=== PATIENT | male | born 1965 | race Caucasian/White ===

== ENCOUNTER → 2019-04-27 18:07 | Outpatient (CLI) | payer OTHER, SELFPAY ==
--- NOTE | 2019-04-27 | DI.RAD.S_ITS ---
PROCEDURE: XR ABDOMEN 1V INDICATIONS: Calculus of kidney TECHNIQUE: One view of the abdomen acquired. COMPARISON: [facility], CT, KIDNEY/ URETER/BLADDER, 01/03/2015, 11:26. FINDINGS: Surgical changes and devices: None. Bowel: Bowel gas pattern is normal. Soft tissues: Nonobstructing kidney stones are seen, with the largest on the left than 5 mm in the largest on the right measuring 3 mm. Bones: No suspicious bony lesions. Age-appropriate bony degenerative changes are seen. IMPRESSION: Bilateral nonobstructing kidney stones are seen by plain film. Dictated by: Jr Chris M.D. on 04/27/2019 at 19:36 Approved by: Jr Chris M.D. on 04/27/2019 at 19:36
== END ==
PROVIDERS: Family Provider Family Medicine; PCP Family Medicine; Referring Provider Urology; Visit Provider Urology
DX: N20.0 Calculus of kidney (principal)
CPT/HCPCS: 74018

== ENCOUNTER → 2021-06-08 11:54 | Outpatient (CLI) | payer OTHER, SELFPAY ==
--- NOTE | 2021-06-08 | DI.MRI.S_ITS ---
PROCEDURE: MR SHOULDER RT WO CON INDICATIONS: Impingement syndrome of right shoulder TECHNIQUE: Noncontrast oblique coronal T2 fast spin echo with fat saturation, oblique sagittal T1 spin echo and T2 fast spin echo with fat saturation, axial T1 spin echo and T2 fast spin echo with fat saturation through the shoulder. COMPARISON: None. FINDINGS: Image quality: Excellent. Rotator cuff: Tendinosis and low-grade articular and bursal surface partial thickness tear involving distal supraspinatus at its insertion on the humeral head is seen with suggestion of focal full-thickness perforation involving most anterior fibers of distal supraspinatus at its insertion on the humeral head without significant retraction of torn tendon fibers. Distal infraspinatus and subscapularis tendinosis is seen. Sagittal images demonstrate mild supraspinatus muscle atrophy. Bones and bursae: No bone marrow contusions or fractures. Moderate acromioclavicular joint osteoarthritic changes are seen with downward osteophyte formation depressing the musculotendinous junction of supraspinatus. Moderate glenohumeral joint osteoarthritic changes also noted. There is small to moderate amount of subacromial subdeltoid bursal fluid. Capsule and soft tissues: There is signal abnormality and contour irregularity involving superior anterior labrum at 12 to 1 o'clock position. Similar signal abnormality involving anterior inferior labrum at 4 to 5 o'clock position is also seen. The long head of the biceps tendon demonstrates normal location and morphology. The rotator interval appears normal, without fibrosis. The coracohumeral ligament is normal in thickness. IMPRESSION: 1. Tendinosis and low-grade articular and bursal surface partial thickness tear involving distal supraspinatus extending to musculotendinous junction. Possible subtle focal full-thickness perforation involving most anterior fibers of distal supraspinatus at its insertion on the humeral head. Distal infraspinatus and subscapularis tendinosis. Mild supraspinatus muscle atrophy. 2. Moderate acromioclavicular joint and glenohumeral joint osteoarthritis. No fracture or dislocation. Small to moderate amount of subacromial subdeltoid bursal fluid. 3. Suggestion of superior anterior labral tear at 12 to 1 o'clock position and anterior-inferior labral tear at 4 to 5 o'clock position. Dictated by: Adalberto Campuzano M.D. on 06/08/2021 at 13:00 Approved by: Adalberto Campuzano M.D. on 06/08/2021 at 14:25
== END ==
PROVIDERS: Family Provider Family Medicine; PCP Student in an Organized Health Care Education/Training Program; Referring Provider Orthopaedic Surgery; Visit Provider Orthopaedic Surgery
DX: M75.41 Impingement syndrome of right shoulder (principal); M75.111 Incomplete rotator cuff tear or rupture of right shoulder, not specified as traumatic; M19.011 Primary osteoarthritis, right shoulder
CPT/HCPCS: 73221

== ENCOUNTER 2023-02-15 01:53 | Emergency (ER) | payer OTHER, SELFPAY ==
[2023-02-15] VITALS (11 sets, daily range): BP systolic 128–164; BP diastolic 69–93; PULSE 89–116; RESP 16–33; TEMP 37.1; O2SAT 94–98; BMI 40.6
--- NOTE | 2023-02-15 02:10 | DI.RAD.S_ITS ---
PROCEDURE: XR CHEST 1V INDICATIONS: cough TECHNIQUE: One view of the chest was acquired. COMPARISON: None. FINDINGS: Surgical changes and devices: None. Lungs and pleura: Lungs are clear. No pleural effusions or pneumothorax. Mediastinum: Mediastinal contours appear normal. Heart size is normal. Bones and chest wall: No suspicious bony lesions. Overlying soft tissues appear unremarkable. IMPRESSION: No acute cardiopulmonary abnormality is seen. No significant discrepancy with the fabricating machine operator radiology preliminary report. Dictated by: Daphne Jeronimo M.D. on 02/15/2023 at 8:12 Approved by: Daphne Jeronimo M.D. on 02/15/2023 at 8:25
[2023-02-15 02:27] LABS: Add Manual Diff / Slide Review NO; Basophils Absolute Auto 0 /uL (0-100); Basophils Percent Auto 0.4 % (0-2); Eosinophils Absolute Auto 0 /uL (0-450); Eosinophils Percent Auto 0.5 % (2-4); Hemoglobin 12.2 g/dL (13.5-17.5); Lymphocytes Absolute Auto 1600 /uL (1100-4500); Lymphocytes Percent Auto 24.7 % (25-40); Mean Corpuscular HGB Conc 33.9 % (30-36); Mean Corpuscular Hemoglobin 28.2 PG (26-34); Mean Corpuscular Volume 83.2 fL (80-100); Monocytes Absolute Auto 1300 /uL (0-900); Monocytes Percent Auto 20.5 % (3-14); Neutrophils Absolute Auto 3400 /uL (1500-7000); Neutrophils Percent Auto 53.9 % (50-75); Platelet Count 197 X10^3/uL (150-400); Red Blood Cell Count 4.33 X10^6/uL (4.5-5.9); Red Cell Distribution Width 14.8 % (11.6-14.8); White Blood Cell Count 6.3 X10^3/uL (4.5-11.0)
[2023-02-15 02:35] LABS: D Dimer 923 ng/ml (<500)
[2023-02-15 02:55] LABS: Alanine Aminotransferase 22 IU/L (<50); Albumin 4.3 g/dL (3.5-5.0); Albumin Globulin Ratio 1.2 (1.0-2.8); Alkaline Phosphatase 89 U/L (38-126); BUN Creatinine Ratio 22.1 (6-22); Bilirubin Total 0.6 mg/dL (0.2-1.3); Blood Urea Nitrogen 23 mg/dL (9-20); Calcium 9.9 mg/dL (8.4-10.2); Carbon Dioxide 26 mmol/L (22-32); Chloride 103 mmol/L (98-107); Estimated Glomerular Filt Rate > 60 mL/min (>60); Globulin 3.6 g/dL (1.7-4.1); Glucose 124 mg/dL (70-100); HEMOLYSIS < 15 (0-50); Lipase 300 U/L (23-300); Magnesium 2.1 mg/dL (1.6-2.3); Potassium 4.1 mmol/L (3.4-5.1); Sodium 138 mmol/L (137-145); Total Protein 7.9 g/dL (6.3-8.2)
--- NOTE | 2023-02-15 02:57 | DI.CT.S_ITS ---
PROCEDURE: CT ANGIO CHEST PE PROTOCOL INDICATIONS: dyspnea, tachycardia, elevated d dimer TECHNIQUE: After the administration of intravenous contrast, 2 mm thick sections acquired from the pulmonary apices to the posterior costophrenic angles. 3-dimensional maximum intensity projection (MIP) coronal and sagittal reformats were then acquired through the thorax. For radiation dose reduction, the following was used: automated exposure control, adjustment of mA and/or kV according to patient size. COMPARISON: [facility], CR, XR CHEST 1V, 02/15/2023, 2:20. FINDINGS: Image quality: Diagnostic. Pulmonary arteries: Mildly suboptimal opacification of pulmonary arteries. Pulmonary arteries are normal in size, and demonstrate no intraluminal filling defects to suggest central pulmonary embolism. Lower Neck: No enlarged lymph nodes. Thyroid: No thyroid nodules which require sonographic follow up, per consensus guidelines. Axillae: No enlarged lymph nodes. Chest Wall: Unremarkable. Bones: Unremarkable. Lungs and Pleura: No pneumothorax or pleural effusions. No consolidation or suspicious nodules. Heart: Heart size is normal. No pericardial effusion. Thoracic Vessels: No aortic aneurysm. Mediastinum and Jyoti: No enlarged lymph nodes. Esophagus: No wall thickening. No hiatal hernia. Upper Abdomen: Visualized upper abdomen solid organs and bowel loops appear normal. IMPRESSION: 1. Mild suboptimal opacification of pulmonary arteries. No definitive pulmonary embolus. 2. No acute cardiopulmonary process. No significant discrepancy with the overnight caregiver radiology preliminary report. Dictated by: Daphne Jeronimo M.D. on 02/15/2023 at 7:37 Approved by: Daphne Jeronimo M.D. on 02/15/2023 at 7:39
[2023-02-15 03:05] LABS: NT-proBNP (BNP-Adult 18+) 52 pg/mL (<125); Troponin I < 0.012 ng/mL (0.01-0.034)
[2023-02-15 03:10] LABS: Procalcitonin 0.07 ng/mL (<0.5)
--- NOTE | 2023-02-15 03:23 | ED.GENADULT ---
HPI - General Adult General Chief complaint: Shortness of Breath/Dyspnea Stated complaint: SOB, cough Time Seen by Provider: 02/15/23 01:59 Source: patient Mode of arrival: Family Vehicle History of Present Illness HPI narrative: 57-year-old gentleman presents complaining of 2 weeks of general malaise with body aches and increasing dyspnea. He typically is seen on either the [place] or the [place]. he reports that his cough has been more productive over the last couple of days. He is having orthopnea, no lower extremity edema. He does not describe recent fevers or chills. He is complaining of palpitations and feels that this is worse when he would he is lying back. 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 He describes no recent headaches or lower extremity edema. Review of Systems Review of Systems Narrative: Pertinent positive and negative findings as per HPI Patient History Social History Smoking Status: Never smoker Smoking Status: Never smoker Exam Initial Vital Signs Initial Vital Signs: Vital Signs Temperature 98.8 F 02/15/23 01:58 Pulse Rate 104 H 02/15/23 01:58 Respiratory Rate 26 H 02/15/23 01:58 Blood Pressure 164/88 H 02/15/23 01:58 Pulse Oximetry 96 02/15/23 01:58 Oxygen Delivery Method Room Air 02/15/23 01:58 General: Healthy appearing, in no acute distress. Able to give a complete and coherent history. Well-nourished well-developed, he is sitting upright for comfort HEENT: Moist mucous membranes, normal sclera with reactive pupils, Neck: No JVD, supple Respiratory: Lungs are clear to auscultation, no wheezing no rales no rhonchi. Full and symmetrical air movement Cardiac: Regular rate and rhythm no murmurs no bruits Abdomen: Soft, nontender, good bowel tones, no flank pain Skin: Warm and dry, no rashes Neurologic: Grossly neurologically intact with no obvious asymmetries or abnormalities Extremities: No trauma, well perfused Psych: Cooperative, appropriate insight and affect Course Orders Ordered: ED Orders 02/15/23 02:00 Complete Blood Count AUTO DIFF Stat Comprehensive Metabolic Panel Stat D Dimer Stat Lipase Stat Magnesium Stat NT-proBNP (BNP-Adult 18+) Stat Procalcitonin Stat Troponin I Stat 02/15/23 02:10 XR chest 1V Stat Urinalysis and Microscopic Stat EKG-12 Lead Stat 02/15/23 02:56 Respiratory Panel (Film Array) Stat 02/15/23 02:57 CT angio chest PE protocol Stat Vital Signs Vital signs: Vital Signs - 8 hr 02/15/23 01:58 Temperature 98.8 F Pulse Rate 104 H Respiratory Rate 26 H Blood Pressure 164/88 H Pulse Oximetry 96 Oxygen Delivery Method Room Air Medical Decision Making Lab Data 02/15/23 02:00 02/15/23 02:00 Labs: Lab Results 02/15/23 Range/Units 02:00 WBC 6.3 (4.5-11.0) X10^3/uL RBC 4.33 L (4.5-5.9) X10^6/uL Hgb 12.2 L (13.5-17.5) g/dL Hct 36.0 L (41-53) % MCV 83.2 (80-100) fL MCH 28.2 (26-34) PG MCHC 33.9 (30-36) % RDW 14.8 (11.6-14.8) % Plt Count 197 (150-400) X10^3/uL Neut % (Auto) 53.9 (50-75) % Lymph % (Auto) 24.7 L (25-40) % [place] % (Auto) 20.5 H (3-14) % Eos % (Auto) 0.5 L (2-4) % Baso % (Auto) 0.4 (0-2) % Neut # (Auto) 3400 (1509-1803) /uL Lymph # (Auto) 1600 (5411-7898) /uL [place] # (Auto) 1300 H (0-900) /uL Eos # (Auto) 0 (0-450) /uL Baso # (Auto) 0 (0-100) /uL D-Dimer 923 H (<500) ng/ml Sodium 138 (137-145) mmol/L Potassium 4.1 (3.4-5.1) mmol/L Chloride 103 (98-107) mmol/L Carbon Dioxide 26 (22-32) mmol/L BUN 23 H (9-20) mg/dL Creatinine 1.04 (0.66-1.25) mg/dL Estimated GFR > 60 (>60) mL/min BUN/Creatinine Ratio 22.1 H (6-22) Glucose 124 H (70-100) mg/dL Calcium 9.9 (8.4-10.2) mg/dL Magnesium 2.1 (1.6-2.3) mg/dL Total Bilirubin 0.6 (0.2-1.3) mg/dL AST TNP ALT 22 (<50) IU/L Alkaline Phosphatase 89 (38-126) U/L Troponin I < 0.012 (0.01-0.034) ng/mL NT-Pro-B Natriuret Pep 52 (<125) pg/mL Total Protein 7.9 (6.3-8.2) g/dL Albumin 4.3 (3.5-5.0) g/dL Globulin 3.6 (1.7-4.1) g/dL Albumin/Globulin Ratio 1.2 (1.0-2.8) Lipase 300 (23-300) U/L Procalcitonin 0.07 (<0.5) ng/mL MDM Narrative Medical decision making narrative: CC: Fever and myalgias for a week now with increasing productive cough, resolved fevers, orthopnea and palpitations Data collected from: patient Medical records reviewed: Medical records are not available for review Differential considered: Postviral pneumonia, continued viral symptoms, pericarditis, pericardial effusion, pneumothorax, pulmonary embolism Exam documented above, pertinent findings include: 57-year-old gentleman able to give a complete and coherent history. Slightly tachycardic and unwilling to sit back or lie flat but exam is otherwise completely benign. I appreciate no significant rhonchi, rales or wheezing on pulmonary exam Lab Test results independently reviewed as above. Pertinent findings: CBC shows a normal white blood cell count, H and H of 12.2 and 36. Platelets are appropriate. He does not have a left shift Chemistries show a sodium at 1:38 a.m., potassium normal at 4.1, normal renal function. Normal liver studies Troponin is undetectable D-dimer is elevated and PE study is ordered ProBNP is not elevated Procalcitonin is normal Lipase is within normal limits Respiratory panel shows COVID and RSV which may explain the severity of his cough and general malaise Independently reviewed EKG: EKG shows sinus rhythm at a rate of 94. Right bundle branch block, no acute ischemic changes Imaging studies independently reviewed: Chest x-ray is relatively benign. He does not have pneumothorax or significant cardiomegaly CT angiogram done for elevated D-dimer and tachycardia with tachypnea does not show any evidence of acute abnormalities and specifically no pulmonary emboli Discussion: Patient is re-evaluated. Oxygen saturations remain in the upper 90s. Reviewed the positive COVID and RSV testing with him. Recommended staying home from work through February 18. Also reviewed remainder of workup including normal CT study, chest x-ray as well as lab work suggesting no evidence for sepsis, acute coronary syndrome or alternate explanation that would require further workup or hospitalization at this time. Questions are answered and he is safe for discharged Discharge Plan Departure Patient Disposition: Home Clinical Impression: Respiratory syncytial virus, COVID Instructions: DI for Respiratory Syncytial Virus -- Adults, COVID-19 Activity Restrictions/Additional Instructions: Thank you for coming in today You have both COVID and respiratory syncytial virus. This explains the body aches and extended upper respiratory symptoms. At this time there was no evidence of heart failure, bacterial pneumonia or any pulmonary consolidation, acute coronary syndrome or pulmonary embolism Conservative management for both of these is what will be required. Using ibuprofen and Tylenol for fever and body aches as appropriate. Making sure you stay well hydrated and getting plenty of sleep. If you find that you are getting worse or develop any new symptoms, please feel free to return to the emergency department for further evaluation. Referrals: Evens Everett DO [Primary Care Provider] - Stand Alone Forms: Patient Portal/API, Work Release Note
[2023-02-15 03:42] LABS: Appearance Urine UA CLEAR; Bilirubin Urine UA NEGATIVE (NEGATIVE); Color Urine UA YELLOW; Glucose Urine UA NEGATIVE (Negative); Ketones Urine UA NEGATIVE (NEGATIVE); Leukocyte Esterase Urine UA NEGATIVE (NEGATIVE); Nitrite Urine UA NEGATIVE (Negative); Occult Blood Urine UA NEGATIVE (Negative); Protein Urine UA NEGATIVE (Negative); Specific Gravity Urine UA >=1.030 (1.000-1.035); Urobilinogen Urine UA 0.2 E.U./dL (0.2)
[2023-02-15 03:52] LABS: Adenovirus Not Detected (Not Detect); B. parapertussis Not Detected (Not Detecte); Bordetella pertussis Not Detected (Not Detect); Chlamydophila pneumoniae Not Detected (Not Detect); Coronavirus 229E Not Detected (Not Detect); Coronavirus HKU1 Not Detected (Not Detect); Coronavirus NL 63 Not Detected (Not Detect); Coronavirus OC43 Not Detected (Not Detect); Human Metapneumovirus Not Detected (Not Detect); Human Rhinovirus/Enterovirus Not Detected (Not Detect); Influenza A Not Detected (Not Detect); Influenza B Not Detected (Not Detect); Mycoplasma pneumoniae Not Detected (Not Detect); Parainfluenza Virus 1 Not Detected (Not Detect); Parainfluenza Virus 2 Not Detected (Not Detect); Parainfluenza Virus 3 Not Detected (Not Detect); Parainfluenza Virus 4 Not Detected (Not Detect); Respiratory Syncytial Virus Detected (Not Detect)
[2023-02-15 03:58] LABS: Bacteria Urine Occasional (0-1); RBC Urine None Seen (0-5/HPF); Squamous Epithelial Cell Urine 1-5 /HPF (0-5/HPF); WBC Urine None Seen (0-5/HPF)
[2023-02-15 03:59] LABS: Culture Indicated Urine Cult Not Indicated
[2023-02-15 04:07] LABS: SARS- CoV-2 Detected (Not Detecte)
[2023-02-16 14:53] LABS: Aspartate Aminotransferase 29 IU/L (17-59)
== END 2023-02-15 04:53 | disposition home or self-care (01) ==
PROVIDERS: Emergency Provider Emergency Medicine; Family Provider Family Medicine; PCP Student in an Organized Health Care Education/Training Program
DX: U07.1 COVID-19 (principal); B97.4 Respiratory syncytial virus as the cause of diseases classified elsewhere; I45.10 Unspecified right bundle-branch block
CPT/HCPCS: 36415; 71045; 71275; 80053; 81001; 83690; 83735; 83880; 84145; 84484; 85025; 85379; 87633; 93005; 99283; 99284; Q9967

== ENCOUNTER 2024-03-15 16:38 | Emergency (ER) | payer OTHER, SELFPAY ==
[2024-03-15] VITALS (8 sets, daily range): BP systolic 130–152; BP diastolic 76–93; PULSE 73–86; RESP 16–18; TEMP 36–36.7; O2SAT 94–96; BMI 43.7
--- NOTE | 2024-03-15 19:07 | DI.CT.S_ITS ---
PROCEDURE: CT HEAD/BRAIN WO CON INDICATIONS: falls x 2, head pain, hx tbi TECHNIQUE: Noncontrast 4.5 mm thick angled axial sections acquired from the foramen magnum to the vertex, with coronal and sagittal reformats. For radiation dose reduction, the following was used: automated exposure control, adjustment of mA and/or kV according to patient size. COMPARISON: [facility], CT, CT CERVICAL SPINE WO CON, 03/15/2024, 19:12. FINDINGS: Image quality: Streak artifact can be seen through the skull base. CSF spaces: Basal cisterns are patent. No extra-axial fluid collections. Ventricles are normal in size and shape. Brain: No midline shift. No intracranial masses or hemorrhage. Akers-white matter interface is normal. Skull and face: Calvarium and visualized facial bones are intact, without suspicious lesions. Sinuses: Visualized sinuses and mastoids are clear. IMPRESSION: No acute intracranial hemorrhage is seen. No acute intracranial pathology. Dictated by: Jr Chris M.D. on 03/15/2024 at 18:59 Approved by: Jr Chris M.D. on 03/15/2024 at 19:00
--- NOTE | 2024-03-15 19:07 | DI.CT.S_ITS ---
PROCEDURE: CT CERVICAL SPINE WO CON INDICATIONS: NECK PAIN, FALLS X2 TECHNIQUE: Noncontrast 3 mm thick sections acquired from the skull base to the T4 level. Sagittal and coronal reformats were then constructed. For radiation dose reduction, the following was used: automated exposure control, adjustment of mA and/or kV according to patient size. COMPARISON: [facility], CT, CT HEAD/BRAIN WO CON, 03/15/2024, 19:12. FINDINGS: Image quality: This examination is somewhat limited by quantum mottle artifact. Bones: No fractures or dislocations. Visualized superior ribs are intact. Focal degenerative change is seen involving the C1-C2 interface anteriorly. There is [id number] disc space narrowing seen at C2-C3 and C3-C4, moderate disc space narrowing at C4-C5. At least moderate disc space narrowing can be seen at C5-C6 and C6-C7. Moderate disc space narrowing is seen at C7-T1. Posteriorly directed endplate osteophytes are seen, which are worst at the C6-C7 level. Several levels of significant facet hypertrophy can be seen. Soft tissues: Prevertebral soft tissues are normal in thickness. No paravertebral hematomas. No apical pneumothoraces. IMPRESSION: No displaced fracture or traumatic subluxation. Underlying cervical spine degenerative changes are seen. Dictated by: Jr Chris M.D. on 03/15/2024 at 19:02 Approved by: Jr Chris M.D. on 03/15/2024 at 19:04
--- NOTE | 2024-03-15 19:15 | ED.NECK ---
HPI - Neck Pain/Injury General Chief Complaint: Neck Pain/Injury Stated Complaint: Neck Pain, Muscle Spasm Time Seen by Provider: 03/15/24 18:43 Mode of arrival: Ambulatory History of Present Illness HPI Narrative: 58-year-old male with history of TBI presents for neck pain. Patient was seen yesterday at the walk-in clinic for neck pain and prescribed Flexeril. He states that he took 3 of the tablets within 12 hours. He felt drowsy and fell twice. He called his ex- to bring him to the emergency department for evaluation. Patient reports pain all across his head in his neck, particularly behind both of his ears. Denies numbness, weakness, other complaints. Denies use of blood thinners Related Data Home Medications Medication Instructions Recorded Confirmed amlodipine 10 mg tablet 10 mg PO DAILY 03/15/24 03/15/24 cyclobenzaprine 10 mg tablet 10 mg PO 3XD PRN Spasms 03/15/24 03/15/24 duloxetine 30 mg capsule,delayed 30 mg PO DAILY 03/15/24 03/15/24 release fexofenadine 180 mg tablet 180 mg PO DAILY PRN Allergy 03/15/24 03/15/24 Symptoms lamotrigine 150 mg tablet 150 mg PO BEDTIME 03/15/24 03/15/24 omeprazole 20 mg capsule,delayed 20 mg PO BID 03/15/24 03/15/24 release propranolol 80 mg capsule,extended 80 mg PO DAILY 03/15/24 03/15/24 release 24 hr Allergies Allergy/AdvReac Type Severity Reaction Status Date / Time No Known Drug Allergies Allergy Verified 03/15/24 16:45 Patient History Social History Smoking Status: Never smoker Smoking Status: Never smoker Exam Initial Vital Signs Initial Vital Signs: Vital Signs Temperature 98.1 F 03/15/24 16:45 Pulse Rate 85 03/15/24 16:45 Respiratory Rate 16 03/15/24 16:45 Blood Pressure 131/87 03/15/24 16:45 Pulse Oximetry 94 03/15/24 16:45 Oxygen Delivery Method Room Air 03/15/24 16:45 Const: Awake, alert, no acute distress, nontoxic appearing neck: generalized tenderness paraspinal into scalp. No midline tenderness MSK: 5/5 strength all extremities Skin: Warm, Dry, intact, no rashes Neuro: AO x3, CN II-XII grossly intact, moves all extremities Course Orders Ordered: ED Orders 03/15/24 19:07 CT cervical spine wo con Stat CT head/brain wo con Stat Discontinued Medications Ketorolac Tromethamine (Ketorolac 30 Mg/Ml Vial) 30 mg IM NOW ONE Stop: 03/15/24 19:08 Last Admin: 03/15/24 19:33 Dose: 30 mg Documented By: ADRIANNA Lidocaine (Lidocaine 5% Patch) 1 each TOP NOW ONE Stop: 03/15/24 19:08 Last Admin: 03/15/24 19:34 Dose: 1 each Documented By: ADRIANNA Vital Signs Vital signs: Vital Signs - 8 hr 03/15/24 18:39 03/15/24 18:40 03/15/24 18:40 Temperature Pulse Rate 75 Respiratory Rate Blood Pressure 135/87 Pulse Oximetry 96 95 Oxygen Delivery Method 03/15/24 19:00 03/15/24 19:00 03/15/24 19:25 Temperature Pulse Rate 77 73 Respiratory Rate Blood Pressure 130/81 Pulse Oximetry 94 95 Oxygen Delivery Method 03/15/24 19:25 03/15/24 19:30 03/15/24 19:30 Temperature Pulse Rate 75 Respiratory Rate 18 Blood Pressure 151/93 H 139/90 Pulse Oximetry 95 Oxygen Delivery Method 03/15/24 20:00 03/15/24 20:00 03/15/24 20:40 Temperature 96.8 F L Pulse Rate 74 86 Respiratory Rate 18 18 Blood Pressure 152/89 H 137/76 Pulse Oximetry 94 96 Oxygen Delivery Method Room Air MDM - Neck Pain/Injury Imaging Data CT - cervical spine: Radiologist's Impression: PROCEDURE: CT CERVICAL SPINE WO CON INDICATIONS: NECK PAIN, FALLS X2 TECHNIQUE: Noncontrast 3 mm thick sections acquired from the skull base to the T4 level. Sagittal and coronal reformats were then constructed. For radiation dose reduction, the following was used: automated exposure control, adjustment of mA and/or kV according to patient size. COMPARISON: [facility], CT, CT HEAD/BRAIN WO CON, 03/15/2024, 19:12. FINDINGS: Image quality: This examination is somewhat limited by quantum mottle artifact. Bones: No fractures or dislocations. Visualized superior ribs are intact. Focal degenerative change is seen involving the C1-C2 interface anteriorly. There is [id number] disc space narrowing seen at C2-C3 and C3-C4, moderate disc space narrowing at C4-C5. At least moderate disc space narrowing can be seen at C5-C6 and C6-C7. Moderate disc space narrowing is seen at C7-T1. Posteriorly directed endplate osteophytes are seen, which are worst at the C6-C7 level. Several levels of significant facet hypertrophy can be seen. Soft tissues: Prevertebral soft tissues are normal in thickness. No paravertebral hematomas. No apical pneumothoraces. IMPRESSION: No displaced fracture or traumatic subluxation. Underlying cervical spine degenerative changes are seen. Dictated by: Jr Chris M.D. on 03/15/2024 at 19:02 Approved by: Jr Chris M.D. on 03/15/2024 at 19:04 CT scan - head: Radiologist's Impression: PROCEDURE: CT HEAD/BRAIN WO CON INDICATIONS: falls x 2, head pain, hx tbi TECHNIQUE: Noncontrast 4.5 mm thick angled axial sections acquired from the foramen magnum to the vertex, with coronal and sagittal reformats. For radiation dose reduction, the following was used: automated exposure control, adjustment of mA and/or kV according to patient size. COMPARISON: [facility], CT, CT CERVICAL SPINE WO CON, 03/15/2024, 19:12. FINDINGS: Image quality: Streak artifact can be seen through the skull base. CSF spaces: Basal cisterns are patent. No extra-axial fluid collections. Ventricles are normal in size and shape. Brain: No midline shift. No intracranial masses or hemorrhage. Akers-white matter interface is normal. Skull and face: Calvarium and visualized facial bones are intact, without suspicious lesions. Sinuses: Visualized sinuses and mastoids are clear. IMPRESSION: No acute intracranial hemorrhage is seen. No acute intracranial pathology. Dictated by: Jr Chris M.D. on 03/15/2024 at 18:59 Approved by: Jr Chris M.D. on 03/15/2024 at 19:00 [facility] Narrative Medical decision making narrative: Two falls after likely ingestion of too much Flexeril for neck pain. No midline tenderness, however due to repetitive falls and complaints of significant pain CTs were ordered. Patient has no history of kidney disease, Toradol IM ordered for pain. CT imaging negative for acute findings. Patient counseled against over consumption of Flexeril. If he continues to have pain he was advised to follow up with his primary care doctor. Discharge Plan Departure Patient Disposition: Home Clinical Impression: Strain of neck muscle Instructions: DI for Neck Pain Activity Restrictions/Additional Instructions: Your scans came back normal. Take tylenol and ibuprofen as needed for pain. Don't take the cyclobenzaprine more than every 8 hours for pain. Prescriptions: No Action cyclobenzaprine 10 mg tablet 10 mg PO 3XD PRN (Reason: Spasms) lamotrigine 150 mg Tablet 150 mg PO BEDTIME fexofenadine 180 mg Tablet 180 mg PO DAILY PRN (Reason: Allergy Symptoms) amlodipine 10 mg tablet 10 mg PO DAILY omeprazole 20 mg capsule,delayed release(DR/EC) 20 mg PO BID propranolol 80 mg Capsule,Extended Release 24hr 80 mg PO DAILY duloxetine 30 mg Capsule,Delayed Release(Dr/Ec) 30 mg PO DAILY Referrals: Evens Everett DO [Primary Care Provider] - Stand Alone Forms: Patient Portal/API/Survey
[2024-03-15] MEDS: KETOROLAC 30 MG/ML VIAL IM (19:33)
[2024-03-15] MEDS: LIDOCAINE 5% PATCH 1 EACH TOP (19:34)
== END 2024-03-15 20:42 | disposition home or self-care (01) ==
PROVIDERS: Emergency Provider Emergency Medicine; Family Provider Family Medicine; PCP Student in an Organized Health Care Education/Training Program
DX: S16.1XXA Strain of muscle, fascia and tendon at neck level, initial encounter (principal); S09.90XA Unspecified injury of head, initial encounter; W19.XXXA Unspecified fall, initial encounter
CPT/HCPCS: 70450; 72125; 96372; 99283; 99284; J1885

== ENCOUNTER → 2024-04-23 15:21 | Outpatient (CLI) | payer OTHER, SELFPAY ==
--- NOTE | 2024-04-23 15:21 | DI.NM.S_ITS ---
PROCEDURE: NM EXERCISE TREADMILL NON NUC COMPARISON: None. INDICATIONS: CHEST PAIN FINDINGS: Patient exercised per the standard Kevin protocol. Total exercise time was 4 minutes and 11 seconds. Test was terminated secondary to shortness of breath. Maximal heart rate obtained is 140 bpm which is 80% of max impacted heart rate. Maximum blood pressure was 181/102[place] [address]. Underlying right bundle branch block with no ischemic changes noted throughout the stress test. No arrhythmias present. No chest pains voiced. Normal heart rate and blood pressure response to exercise. IMPRESSION: 1. Negative exercise treadmill stress test for ischemia but accuracy is diminished due to severely limited exercise time. 2. Below average exercise tolerance. Dictated by: Chris Campuzano M.D. on 04/24/2024 at 17:15 Approved by: Chris Campuzano M.D. on 04/24/2024 at 17:17
== END ==
LOC: NUCM 15:21
PROVIDERS: Family Provider Family Medicine; PCP Student in an Organized Health Care Education/Training Program; Referring Provider Internal Medicine; Visit Provider Internal Medicine
DX: I45.10 Unspecified right bundle-branch block (principal); R07.9 Chest pain, unspecified
CPT/HCPCS: 93017